=== PATIENT | male | born 1990 | race Caucasian/White ===

== ENCOUNTER 2017-03-04 10:27 | Emergency (ER) | payer OTHER ==
[2017-03-04] MEDS ORDERED: NS 0.9% 1000 ML* 1,000 ML IV ONE (10:34)
[2017-03-04] MEDS ORDERED: Ketorolac INJ* 30 MG/ML 1 ML VIAL IV PUSH ONE (10:42)
--- NOTE | 2017-03-04 10:43 | ED ---
Abdominal Pain/Male - HPI Summary HPI Summary: 26M presents with RUQ pain for a couple hours. He states it is a sharp pain. He states his pain radiates across his abdomen. He denies any n/v/d/c. He denies any dysuria, hematuria, flank pain, urgency or frequency. He denies any fever. He has never had this pain before. He denies any previous abdominal surgeries. He woke up with this pain. He has not taken anything for his pain. He had shah for dinner last night which was he last meal. - History of Current Complaint Chief Complaint: EDAbdPain Stated Complaint: ABD PAIN & CRAMPING Time Seen by Provider: 03/04/17 10:33 Pain Intensity: 10 - Allergies/Home Medications Allergies/Adverse Reactions: Allergies Allergy/AdvReac Type Severity Reaction Status Date / Time No Known Allergies Allergy Verified 03/04/17 10:32 PMH/Surg Hx/FS Hx/Imm Hx Endocrine/Hematology History: Denies: Hx Anticoagulant Therapy Cardiovascular History: Denies: Hx Hypertension Infectious Disease History: No Infectious Disease History: Denies: Traveled Outside the [place] in Last 30 Days - Family History Known Family History: Positive: Cardiac Disease - Social History Alcohol Use: Weekly Substance Use Type: Reports: None Smoking Status (MU): Never Smoked Tobacco Review of Systems Negative: Fever Negative: Chest Pain Negative: Shortness Of Breath Positive: Abdominal Pain - RUQ pain. Negative: Vomiting, Diarrhea, Nausea All Other Systems Reviewed And Are Negative: Yes Physical Exam Triage Information Reviewed: Yes Vital Signs On Initial Exam: Initial Vitals Temp Pulse Resp BP Pulse Ox 97.0 F 78 16 142/88 100 03/04/17 10:28 03/04/17 10:28 03/04/17 10:28 03/04/17 10:28 03/04/17 10:28 Vital Signs Reviewed: Yes Appearance: Positive: Well-Appearing Skin: Positive: Warm, Dry Head/Face: Positive: Normal Head/Face Inspection Eyes: Positive: Normal, Conjunctiva Clear Respiratory/Lung Sounds: Positive: Clear to Auscultation, Breath Sounds Present Cardiovascular: Positive: Normal, RRR Abdomen Description: Positive: Soft, Other: - tenderness greatest in RUQ and mild tenderness RLQ, neg [facility] and [facility] Bowel Sounds: Positive: Present Neurological: Positive: Sensory/Motor Intact Psychiatric: Positive: Normal Diagnostics - Vital Signs Vital Signs Temp Pulse Resp BP Pulse Ox 03/04/17 10:37 97.0 F 78 16 142/88 100 03/04/17 10:28 97.0 F 78 16 142/88 100 - Laboratory Result Diagrams: 03/04/17 10:55 03/04/17 10:55 Lab Statement: Any lab studies that have been ordered have been reviewed, and results considered in the medical decision making process. - CT abd CT Interpretation: No Acute Changes - IMPRESSION: NO ABNORMAL MASSES OR FLUID COLLECTIONS ARE IDENTIFIED. NO OBSTRUCTIVE UROPATHY IS NOTED. NORMAL APPENDIX. CT Interpretation Completed By: Radiologist - Ultrasound No standard instances Ultrasound Interpretation: No Acute Changes Ultrasound Interpretation Completed By: Radiologist - IMPRESSION: No evidence of cholelithiasis or biliary duct dilatation is noted. Re-Evaluation - Re-Evaluation First Eval Re-Evaluation Time: 13:35 Change: Improved Comment: feels good Abdominal Pain Fem Course/Dx - Course Course Of Treatment: 26M presents with RUQ pain for a couple hours. He states it is a sharp pain. He states his pain radiates across his abdomen. He denies any n/v/d/c. He denies any dysuria, hematuria, flank pain, urgency or frequency. He denies any fever. He has never had this pain before. He denies any previous abdominal surgeries. He woke up with this pain. on exam tender in RUQ and RLQ. gallbladder u/s and CT normal. labs normal. explained results. patient understands and agrees with plan. - Diagnoses Differential Diagnosis/HQI/PQRI: Appendicitis, Gall Bladder Disease, Urinary Tract Infection Provider Diagnoses: Abdominal pain Discharge - Discharge Plan Condition: Good Disposition: HOME Patient Education Materials: Abdominal Pain (ED) Referrals: Joi Nguyen MD [Primary Care Provider] - Additional Instructions: Drink small amounts of fluid as tolerated When able to eat follow BRAT diet: Bananas, rice, applesauce, toast Take ibuprofen or Tylenol for pain as needed every 6 hours Follow up with primary within 5 days Return to ED if develop any new or worsening symptoms
--- NOTE | 2017-03-04 11:28 | RAD ---
Indication: Right upper quadrant pain. Real-time sonography of the right upper quadrant was performed. The liver is normal in size. No focal lesions or intrahepatic duct dilatation is noted. The gallbladder demonstrates no calcified gallstones. No pericholecystic fluid or wall thickening is identified. The common duct measures 4 mm. Right kidney measures 12.2 x 4.9 x 6.0 cm with no hydronephrosis. The pancreatic head, neck and proximal body demonstrates no mass or pancreatic duct dilatation. The aorta and inferior vena cava are unremarkable. IMPRESSION: No evidence of cholelithiasis or biliary duct dilatation is noted.
[2017-03-04 11:34] LABS: Hematocrit 42 % (42-52); Hemoglobin 14.2 g/dl (14.0-18.0); Mean Corpuscular HGB Conc 34 g/dl (31-36); Mean Corpuscular Hemoglobin 29 pg (27-31); Mean Corpuscular Volume 86 fL (80-94); Mean Platelet Volume 9 um3 (7.4-10.4); Red Blood Count 4.93 10^6/ul (4.0-5.4); Red Cell Distribution Width 15 % (10.5-15); White Blood Count 6.3 10^3/ul (3.5-10.8)
[2017-03-04 11:45] LABS: BUN/Creatinine Ratio 10.5 (8-20); Calcium 9.6 mg/dL (8.6-10.3); EGFR African American 125.3 (>60); EGFR Non-African American 97.4 (>60); Globulin 2.5 g/dL (2-4); Potassium 3.2 mmol/L (3.5-5.0); Total Bilirubin 0.4 mg/dL (0.2-1.0); Total Protein 6.5 g/dL (6.4-8.9)
[2017-03-04] MEDS ORDERED: Iohexol 300* (CONTRAST) 10 ML SDV IV ONE (12:47)
--- NOTE | 2017-03-04 13:29 | RAD ---
Indication: Right-sided abdominal pain. Contrast: Administered 149.9 ml of OMNIPAQUE 300 mgi/ml CT of the abdomen and pelvis was performed after oral and IV contrast administration. Coronal and sagittal reconstructed images were obtained. Lung bases demonstrate no pleural fluid, nodules or masses. Heart is of normal size without evidence of pericardial effusion. Liver is normal in size. No focal lesions or intrahepatic ductal dilatation is noted common duct is not dilated. Gallbladder demonstrates no catheter gallstones, pericholecystic fluid or wall thickening. Spleen is normal in size. Pancreas demonstrates no mass or pancreatic duct dilatation. The common duct is not dilated. No adrenal masses are noted. The kidneys demonstrate symmetric nephrograms without hydronephrosis. Symmetric excretion is noted. No retroperitoneal lymphadenopathy. No dilated bowel are noted. The colon is filled with stool. Urinary bladder is unremarkable. Appendix is visualized and is unremarkable. No dilated loops of bowel are noted. CT of the pelvis demonstrates no retroperitoneal or pelvic lymphadenopathy. The colon is filled with stool. Urinary bladder is unremarkable. No dilated loops of bowel are noted. IMPRESSION: NO ABNORMAL MASSES OR FLUID COLLECTIONS ARE IDENTIFIED. NO OBSTRUCTIVE UROPATHY IS NOTED. NORMAL APPENDIX.
[2017-03-04 13:44] VITALS: BP 129/73
[2017-03-04 13:59] LABS: Urine Bacteria Absent (Absent); Urine Bilirubin Negative (Negative); Urine Glucose Negative (Negative); Urine Nitrite Negative (Negative)
== END 2017-03-04 13:40 | disposition home or self-care (01) ==
LOC: ED 10:27
DX: R10.11 Right upper quadrant pain (principal)
CPT/HCPCS: 36415; 74177; 76705; 80053; 81003; 81015; 83690; 85025; 86141; 96374; 99282; J1885; Q9967

== ENCOUNTER 2017-03-05 13:59 | Emergency (ER) | payer OTHER ==
[2017-03-05] MEDS ORDERED: Ondansetron INJ* 2 MG/ML VIAL IV ONE (15:15)
[2017-03-05] MEDS ORDERED: Morphine INJ* 4 MG/ML 1 ML CARPUJECT IV ONE (15:15)
[2017-03-05] MEDS ORDERED: NS 0.9% 1000 ML* 1,000 ML IV ONE (15:15)
[2017-03-05 15:31] LABS: Hematocrit 42 % (42-52); Hemoglobin 14.1 g/dl (14.0-18.0); Mean Corpuscular HGB Conc 34 g/dl (31-36); Mean Corpuscular Hemoglobin 29 pg (27-31); Mean Corpuscular Volume 86 fL (80-94); Mean Platelet Volume 9 um3 (7.4-10.4); Red Blood Count 4.86 10^6/ul (4.0-5.4); Red Cell Distribution Width 15 % (10.5-15); White Blood Count 8.8 10^3/ul (3.5-10.8)
[2017-03-05 15:46] LABS: Albumin 4.5 g/dL (3.2-5.2); BUN/Creatinine Ratio 10.5 (8-20); C Reactive Protein 6.62 mg/L (< 5.00); Calcium 9.5 mg/dL (8.6-10.3); EGFR African American 111.6 (>60); EGFR Non-African American 86.8 (>60); Globulin 2.4 g/dL (2-4); Potassium 3.3 mmol/L (3.5-5.0); Total Bilirubin 0.7 mg/dL (0.2-1.0); Total Protein 6.9 g/dL (6.4-8.9)
--- NOTE | 2017-03-05 16:58 | RAD ---
INDICATION: RIGHT flank pain with interval worsening. Hematuria. COMPARISON: Contrast enhanced CT of one day prior. TECHNIQUE: Multidetector CT images were obtained from the lung bases to the ischial tuberosities. Evaluation of the viscera is limited without IV contrast. Multiplanar reformation. REPORT: Mild airspace consolidation at the basilar segments of the RIGHT lower lobe without significant volume loss concerning for pneumonia. Negative for pleural effusion. Negative for CT abnormality of the unenhanced liver, gallbladder, pancreas, spleen. Splenule at the splenic hilum. Negative for CT abnormality of the upper GI, small bowel, or retrocecal appendix. Largely decompressed colon without suspicious finding. Negative for ascites, free air, hernias. Normal adrenal glands. Mild RIGHT hydronephrosis is traced to a solitary 1 mm stone at the far distal ureter approximate 1 cm from the ureterovesicular junction. No additional urolithiasis visualized. Negative for significant perinephric or periureteral inflammatory stranding. Unremarkable largely decompressed urinary bladder. Unremarkable prostate and seminal vesicles. Negative for lymphadenopathy. Normal diameter abdominal aorta and iliac arteries. Physiologic distention of the IVC. No suspicious osseous lesions evident. IMPRESSION: Mild RIGHT hydronephrosis is traced to a solitary 1 mm stone at the far distal ureter approximate 1 cm from the ureterovesicular junction. This represents a new finding compared with the CT of one day prior.
[2017-03-05 17:29] LABS: Budding Yeast Present (Absent); Urine Bacteria Absent (Absent); Urine Bilirubin Negative (Negative); Urine Glucose Negative (Negative); Urine Nitrite Negative (Negative)
[2017-03-05] MEDS ORDERED: Ketorolac INJ* 30 MG/ML 1 ML VIAL IV PUSH ONE (18:01)
[2017-03-05 18:45] VITALS: BP 139/81
--- NOTE | 2017-03-13 14:43 | ED ---
Bharati Snowden Thomas, scribed for Fer Farnsworth MD on 03/05/17 at 1517 . Abdominal Pain/Male - HPI Summary HPI Summary: The pt is a 26 y/o M presenting to the ED c/o RUQ abd pain. The pain began yesterday but worsened this AM. The pain radiates to his back and he rates the pain 10/10. He was [place] [facility] [place] JULIA Keller, and discharged home with a diagnosis of abd pain. He had a negative gallbladder US performed yesterday. He was given Toradol yesterday, which relieved his pain. 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 Pt denies dysuria, hematuria, and diarrhea. He denies a history of kidney stones. His PCP is Dr. Nguyen. He is on the ketogenic diet and started a month ago. He has lost ten pounds in the last month. PMHx: previously healthy. PSHx: none. SHx: marijuana, occasional drinking, no tobacco. 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 Negative: Diarrhea - Allergies/Home Medications Allergies/Adverse Reactions: Allergies Allergy/AdvReac Type Severity Reaction Status Date / Time No Known Allergies Allergy Verified 03/04/17 10:32 PMH/Surg Hx/FS Hx/Imm Hx Previously Healthy: No Endocrine/Hematology History: Denies: Hx Anticoagulant Therapy Cardiovascular History: Denies: Hx Hypertension Opthamlomology History: Denies: Hx Legally Blind Infectious Disease History: No Infectious Disease History: Denies: Traveled Outside the [place] in Last 30 Days - Family History Known Family History: Positive: Cardiac Disease - Social History Alcohol Use: Weekly Substance Use Type: Reports: None Smoking Status (MU): Never Smoked Tobacco Review of Systems Positive: Skin Diaphoresis. 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 Negative: dysuria, hematuria Musculoskeletal: Negative Negative: Edema - leg Skin: Negative Negative: Rash Neurological: Negative, Other - NEG: dizziness Psychological: Normal All Other Systems Reviewed And Are Negative: Yes Physical Exam - Summary Physical Exam Summary: Constitutional: Well-developed, Well-nourished, Alert. (-) Distressed Skin: Warm, Dry HENT: Normocephalic; Atraumatic Eyes: Conjunctiva normal Neck: Musculoskeletal ROM normal neck. (-) JVD, (-) Stridor, (-) Tracheal deviation Cardio: Rhythm regular, rate normal, Heart sounds normal; Intact distal pulses; The pedal pulses are 2+ and symmetric. Radial pulses are 2+ and symmetric. (-) Murmur Pulmonary/Chest wall: Effort normal. (-) Respiratory distress, (-) Wheezes, (-) Rales Abd: R CVA tenderness. RUQ and RLQ tenderness (RUQ>RLQ). Obese abdomen. Soft, (- ) Distension, (-) Guarding, (-) Rebound Musculoskeletal: (-) Edema Lymph: (-) Cervical adenopathy Neuro: Alert, Oriented x3 Psych: Mood and affect Normal Testicular: normal testicular exam. No tenderness. Triage Information Reviewed: Yes Vital Signs On Initial Exam: Initial Vitals Temp Pulse Resp BP Pulse Ox 99.9 F 77 20 144/82 100 03/05/17 14:01 03/05/17 14:01 03/05/17 14:01 03/05/17 14:01 03/05/17 14:01 Vital Signs Reviewed: Yes Diagnostics - Vital Signs Vital Signs Temp Pulse Resp BP Pulse Ox 03/05/17 15:02 97.7 F 80 20 153/83 98 03/05/17 14:01 99.9 F 77 20 144/82 100 - Laboratory Result Diagrams: 03/05/17 15:25 03/05/17 15:25 Lab Statement: Any lab studies that have been ordered have been reviewed, and results considered in the medical decision making process. - CT CT Abd/Pel CT Interpretation: Positive (See Comments) - CT Abd/Pel reveals Mild RIGHT hydronephrosis is traced to a solitary 1 mm stone at the far distal ureter approximate 1 cm from the ureterovesicular junction. This represents a new finding compared with the CT of one day prior. CT Interpretation Completed By: Radiologist Re-Evaluation - Re-Evaluation First Eval Re-Evaluation Time: 18:40 Change: Unchanged Abdominal Pain Fem Course/Dx - Course Assessment/Plan: The pt is a 26 y/o M presenting to the ED c/o RUQ abd pain. The pain began yesterday but worsened this AM. The pain radiates to his back and he rates the pain 10/10. He was seen at [facility] [place] by JULIA Keller, and discharged home with a diagnosis of abd pain. He had a negative gallbladder US performed yesterday. He was given Toradol yesterday, which relieved his pain. 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 Pt denies dysuria, hematuria, and diarrhea. He denies a history of kidney stones. His PCP is Dr. Nguyen. He is on the ketogenic diet and started a month ago. He has lost ten pounds in the last month. PMHx: previously healthy. PSHx: none. SHx: marijuana, occasional drinking , no tobacco. FHx: CAD. Bloodwork reveals Lymph % 10.6, absolute lymphs 0.9, Potassium 3.3, Glucose 110, CRP 6.62. UA shows ketones 2+, blood 3+, RBC 3+, yeast present. CT Abd/Pel reveals Mild RIGHT hydronephrosis is traced to a solitary 1 mm stone at the far distal ureter approximate 1 cm from the ureterovesicular junction. This represents a new finding compared with the CT of one day prior. In the ED course the patient was given morphine, toradol, IV fluids, and Zofran. He was diagnosed with ureteral stone and discharged home with follow-up to Dr. Davidson. - Diagnoses Provider Diagnoses: Ureteral stone Discharge - Discharge Plan Condition: Stable Disposition: HOME Prescriptions: Ketorolac TAB * [Toradol TAB *] 10 mg PO Q6H #12 tab oxyCODONE/Acetamin 5/325 MG* [Percocet 5/325 TAB*] 1 tab PO Q6H PRN #12 tab MDD 4 PRN Reason: Pain - Severe Patient Education Materials: Ureteral Stones (ED) Referrals: Johnny Davidson MD [Medical Doctor] - 3 Days Additional Instructions: RETURN TO THE EMERGENCY DEPARTMENT FOR CHANGING OR WORSENING SYMPTOMS The documentation as recorded by the Bharati houston Thomas accurately reflects the service I personally performed and the decisions made by Daaj conner Jerry, MD.
== END 2017-03-05 18:46 | disposition home or self-care (01) ==
LOC: ED 13:59
DX: N20.1 Calculus of ureter (principal); R10.11 Right upper quadrant pain; R61 Generalized hyperhidrosis; R11.2 Nausea with vomiting, unspecified
CPT/HCPCS: 36415; 74176; 80053; 81003; 81015; 83605; 83690; 85025; 86140; 96374; 96375; 99283; J1885; J2270; J2405

== ENCOUNTER 2017-11-05 08:27 | Emergency (ER) | payer OTHER ==
[2017-11-05] MEDS ORDERED: Ketorolac INJ* 60 MG/2 ML VIAL IM ONE (09:35)
[2017-11-05] MEDS ORDERED: Lidocaine 2% VISCOUS* 15 ML UDC SWISH SPIT ONE (09:35)
[2017-11-05 10:08] VITALS: BP 122/70
--- NOTE | 2017-11-05 10:21 | ED ---
Throat Pain/Nasal Congestion - HPI Summary HPI Summary: Pt here with left posterior molar pain along the gingiva since middle of the night last night. He reports he had a GI bug last week with vomiting and believes he irritated an already decayed and sensitive area along this tooth. He has been trying Scope mouthwash which provides temporary relief when he allows it to rest against the area with his mouth closed. He also reports pain is less when he breathes into a blanket. Pain is worse with temperature changes. Denies discharge from the area, fever, chills, headache, otalgia however at its peak of pain last night he did have radiating pain into his left ear. He tried a Fioricet and a by mouth Toradol he had at home without relief. Reports pain has actually calmed down since he's been here to a 4 out of 10 where was excruciating last night. He has an appointment to see his dentist on Wednesday. No difficulty breathing or swallowing. - History of Current Complaint Chief Complaint: EDDentalPain Time Seen by Provider: 11/05/17 09:09 Hx Obtained From: Patient - Allergies/Home Medications Allergies/Adverse Reactions: Allergies Allergy/AdvReac Type Severity Reaction Status Date / Time No Known Allergies Allergy Verified 03/04/17 10:32 PMH/Surg Hx/FS Hx/Imm Hx Previously Healthy: Yes Endocrine/Hematology History: Denies: Hx Anticoagulant Therapy Cardiovascular History: Denies: Hx Hypertension Sensory History: Denies: Hx Legally Blind Opthamlomology History: Denies: Hx Legally Blind Infectious Disease History: No Infectious Disease History: Denies: Traveled Outside the [place] in Last 30 Days - Family History Known Family History: Positive: Cardiac Disease - Social History 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 Negative: Sore Throat, Ear Ache, Nasal Discharge Cardiovascular: Negative Respiratory: Negative Gastrointestinal: Negative Positive: no symptoms reported Musculoskeletal: Negative Skin: Negative Neurological: Negative Psychological: Normal All Other Systems Reviewed And Are Negative: Yes Physical Exam Triage Information Reviewed: Yes Vital Signs On Initial Exam: Initial Vitals Temp Pulse Resp BP Pulse Ox 98.1 F 65 16 140/84 98 11/05/17 08:33 11/05/17 08:33 11/05/17 08:33 11/05/17 08:33 11/05/17 08:33 Vital Signs Reviewed: Yes Appearance: Positive: Well-Appearing, No Pain Distress, Obese Skin: Positive: Warm, Skin Color Reflects Adequate Perfusion, Dry - No erythema , no edema, no lesions over affected area face Head/Face: Positive: Normal Head/Face Inspection Eyes: Positive: Normal, EOMI, Conjunctiva Clear. Negative: Conjunctiva Inflammed, Discharge ENT: Positive: Hearing grossly normal, Pharynx normal, TMs normal - Left, Uvula midline. Negative: Nasal congestion, Nasal drainage, TM bulging, TM dull, TM red, Tonsillar swelling, Tonsillar exudate, Trismus, Muffled voice, Hoarse voice Dental: Positive: Gross Decay/Caries @ - #15 or 16 w/ decay at gingival border - tissue is erythematous and TTP - no drainage or bleeding - no som edema or pustule Neck: Positive: Supple, Nontender, No Lymphadenopathy Respiratory/Lung Sounds: Positive: Clear to Auscultation, Breath Sounds Present Cardiovascular: Positive: Normal Musculoskeletal: Positive: Normal, Strength/ROM Intact Neurological: Positive: Normal, Sensory/Motor Intact, Alert, Oriented to Person Place, Time, CN Intact II-III Psychiatric: Positive: Normal Diagnostics - Vital Signs Vital Signs Temp Pulse Resp BP Pulse Ox 11/05/17 10:02 99.1 F 74 16 122/70 97 11/05/17 10:00 65 93/76 97 11/05/17 09:30 76 132/58 99 11/05/17 09:00 79 142/80 99 11/05/17 08:51 82 96 11/05/17 08:49 138/83 11/05/17 08:33 98.1 F 65 16 140/84 98 - Laboratory Lab Statement: Any lab studies that have been ordered have been reviewed, and results considered in the medical decision making process. EENT Course/Dx - Diagnoses Provider Diagnoses: Dental decay Discharge - Sign-Out/Discharge Documenting (check all that apply): Discharge - Discharge Plan Condition: Stable Disposition: HOME Prescriptions: Clindamycin HCl 300 mg PO Q8HR #30 capsule Ibuprofen TAB* [Motrin TAB* 800 MG] 800 mg PO Q8HR PRN #20 tab PRN Reason: Pain Lidocaine 2% VISCOUS* [Xylocaine 2% Viscous*] 15 ml SWISH SPIT Q4H PRN #1 btl PRN Reason: Pain Patient Education Materials: Toothache (ED) Forms: *Work Release Referrals: Joi Nguyen MD [Primary Care Provider] - Additional Instructions: Complete antibiotics and use pain medications as needed. Avoid caustic foods or beverages such as spicy foods, carbonated beverages, sugary or acidic foods or beverages and anything alcohol-based (i.e. mouthwash). Stay hydrated by drinking room temperature/warm liquids and nourished by drinking soup broth and a temperature that is tolerable. Follow-up with dentist Wednesday as planned *If you develop a severe headache, fever, difficulty breathing or swallowing, return to the emergency department - Billing Disposition and Condition Condition: STABLE Disposition: HOME
== END 2017-11-05 10:02 | disposition home or self-care (01) ==
LOC: ED 08:27
DX: K02.9 Dental caries, unspecified (principal)
CPT/HCPCS: 96372; 99283; J1885

== ENCOUNTER 2018-07-07 08:20 | Emergency (ER) | payer OTHER ==
--- NOTE | 2018-07-07 09:03 | ED ---
Syncope/Near Syncope - HPI Summary HPI Summary: This patient is a 27 year old M presenting to [facility] accompanied by his father with a chief complaint of a syncopal episode that occurred this morning. Pt states he has had a general illness for the last week and this morning he was getting up to vomit when one of his roommates heard him fall. They entered to him getting off the floor and they contacted his father. Pt states that for the last week he has been experiencing n/v, cramping ABD pain, RIVAS, cough, and decreased appetite. He has also had diarrhea but this may be due to his IBS. He states he feels dehydrated and has had a migraine for the last couple days, he gets migraines intermittently. The patient rates the pain 5/10 in severity. He reports having syncopal episodes in the pat but it has been due to anxiety. Patient denies blood in BM. He believes the vomiting is due to the coughing fits he has. Pt still has his appendix. NKDA. - History Of Current Complaint Chief Complaint: EDGeneral Time Seen by Provider: 07/07/18 08:54 Hx Obtained From: Patient Onset/Duration: Resolved Timing: Seconds Context: Unwitnessed Activity At Onset: Other Associated Signs And Symptoms: Vomiting, Other - nausea - Allergies/Home Medications Allergies/Adverse Reactions: Allergies Allergy/AdvReac Type Severity Reaction Status Date / Time No Known Allergies Allergy Verified 11/09/17 09:37 Home Medications: Home Medications NK [No Home Medications Reported] 07/07/18 [History Confirmed 07/07/18] PMH/Surg Hx/FS Hx/Imm Hx Endocrine/Hematology History: Denies: Hx Anticoagulant Therapy Cardiovascular History: Denies: Hx Hypertension GI History: Reports: Hx Irritable Bowel Sensory History: Reports: Hx Contacts or Glasses Denies: Hx Legally Blind Opthamlomology History: Reports: Hx Contacts or Glasses Denies: Hx Legally Blind Neurological History: Reports: Other Neuro Impairments/Disorders - syncope Psychiatric History: Reports: Hx Anxiety Infectious Disease History: No Infectious Disease History: Denies: Traveled Outside the [place] in Last 30 Days - Family History Known Family History: Positive: Cardiac Disease Family History: breast cancer - Social History Lives: Dormitory/Roommates Alcohol Use: Rare Alcohol Amount: "1/2 pink of Vodka" Substance Use Type: Reports: Marijuana Substance Use Comment - Amount & Last Used: 2 times a week Hx Tobacco Use: No Smoking Status (MU): Never Smoked Tobacco Review of Systems Positive: Cough Gastrointestinal: Other - decreased appetite and dehydration Positive: Abdominal Pain, Vomiting, Diarrhea, Nausea Positive: Headache, Syncope All Other Systems Reviewed And Are Negative: Yes Physical Exam - Summary Physical Exam Summary: GENERAL: Patient is a well-developed and nourished M who is lying comfortable in the stretcher. Patient is not in any acute respiratory distress. HEAD AND FACE: Normocephalic EYES: PERRLA, EOMI x 2. EARS: Hearing grossly intact. MOUTH: Oropharynx within normal limits. NECK: Supple, trachea is midline, no adenopathy, no JVD, no carotid bruit. CHEST: Symmetric, no tenderness at palpation LUNGS: Clear to auscultation bilaterally. No wheezing or crackles. CVS: Regular rate and rhythm, S1 and S2 present, no murmurs or gallops appreciated. ABDOMEN: Soft, TTP in periumbilical region, TTP in RUQ and RLQ that is worse in the RLQ. Bowel sounds are normal. No abdominal abnormal pulsations. EXTREMITIES: Full ROM in all major joints, no edema, no cyanosis or clubbing. NEURO: Alert and oriented x 3. No acute neurological deficits. Speech is normal and follows commands. SKIN: Dry and warm Triage Information Reviewed: Yes Vital Signs On Initial Exam: Initial Vitals Temp Pulse Resp BP Pulse Ox 100.2 F 73 19 136/93 95 07/07/18 08:23 07/07/18 08:23 07/07/18 08:23 07/07/18 08:23 07/07/18 08:23 Vital Signs Reviewed: Yes Diagnostics - Vital Signs Vital Signs Temp Pulse Resp BP Pulse Ox 07/07/18 08:36 85 151/89 98 07/07/18 08:23 100.2 F 73 19 136/93 95 - Laboratory Result Diagrams: 07/07/18 09:47 07/07/18 09:47 Lab Statement: Any lab studies that have been ordered have been reviewed, and results considered in the medical decision making process. - Radiology CXR Radiology Interpretation Completed By: Radiologist Summary of Radiographic Findings: no evidence for acute cardiopulmonary disease. ED physician has reviewed this radiology report. - CT CT ABD/Pelvis CT Interpretation Completed By: Radiologist Summary of CT Findings: NORMAL APPENDIX. NO ACUTE CT PATHOLOGY OF THE VISUALIZED ABDOMEN OR PELVIS. ED physician has reviewed this radiology report. - EKG 0915 Cardiac Rate: NL EKG Rhythm: Sinus Rhythm - at 67 BPM Summary of EKG Findings: interventricular conduction delay. DEBORAH. Course/Dx Assessment/Plan: This patient is a 27 year old M presenting to [facility] accompanied by his father with a chief complaint of a syncopal episode that occurred this morning. Pt states he has had a general illness for the last week and this morning he was getting up to vomit when one of his roommates heard him fall. An EKG reveals 0915, NSR 67 BPM interventricular conduction delay. DEBORAH. CXR reveals, per radiologist, no evidence for acute cardiopulmonary disease. CT ABD/Pelvis, per radiology, NORMAL APPENDIX. NO ACUTE CT PATHOLOGY OF THE VISUALIZED ABDOMEN OR PELVIS. The patient was given toradol, Zofran, and IV fluids. Pt improved with these medications. Dx viral syndrome. His sx are most likely secondary to this. Test results with no significant abnormalities. UA obtained there was no UTI evidence. Pt was negative for mono, influenza A and B , as well as strep. Patient will be discharged with strict return precautions and he will f/u with PCP in 1-3 days. The patient is agreeable with this plan. - Diagnoses Provider Diagnoses: Viral syndrome Discharge - Sign-Out/Discharge Documenting (check all that apply): Patient Departure - Discharge Plan Condition: Stable Disposition: HOME Patient Education Materials: Viral Syndrome (ED) Referrals: Joi Nguyen MD [Primary Care Provider] - Additional Instructions: Follow up with your primary care physician in 1-3 days. RETURN TO THE EMERGENCY DEPARTMENT FOR CHANGING OR WORSENING SYMPTOMS. - Billing Disposition and Condition Condition: STABLE Disposition: Home - Attestation Statements Document Initiated by Jhon: Yes Documenting Scribe: Solomon Calderon Provider For Whom Jhon is Documenting (Include Credential): Baudilio Houston Attestation: Solomon Snowden scribed for Baudilio Travis on 07/07/18 at 1533. Scribe Documentation Reviewed: Yes Provider Attestation: The documentation as recorded by the Solomon houston accurately reflects the service I personally performed and the decisions made by Baudilio conner Status of Scribe Document: Viewed
[2018-07-07] MEDS ORDERED: NS 0.9% 1000 ML* 1,000 ML IV ONE (09:07)
[2018-07-07] MEDS ORDERED: Ketorolac INJ* 30 MG/ML 1 ML VIAL IV PUSH ONE (09:08)
[2018-07-07] MEDS ORDERED: Ondansetron INJ* 2 MG/ML VIAL IV ONE (09:08)
[2018-07-07 09:57] LABS: ABS Basophils 0.1 10^3/ul (0-0.2); ABS Eosinophils 0.1 10^3/ul (0-0.6); ABS Lymphocytes 1.4 10^3/ul (1.0-4.8); ABS Monocytes 0.5 10^3/ul (0-0.8); ABS Neutrophils 6.4 10^3/ul (1.5-7.7); ABS Nucleated RBC 0 10^3/ul; Eosinophil % 0.8 %; Hematocrit 47 % (42-52); Hemoglobin 16.1 g/dl (14.0-18.0); Lymphocyte % 16.3 %; Mean Corpuscular HGB Conc 35 g/dl (31-36); Mean Corpuscular Hemoglobin 30 pg (27-31); Mean Corpuscular Volume 86 fL (80-94); Mean Platelet Volume 8.5 fL (7.4-10.4); Nucleated Red Blood Cells % 0; Platelet Count 341 10^3/ul (150-450); Red Blood Count 5.43 10^6/ul (4.00-5.40); Red Cell Distribution Width 13 % (10.5-15); White Blood Count 8.4 10^3/ul (3.5-10.8)
[2018-07-07] MEDS ORDERED: Iohexol 300* (CONTRAST) 10 ML SDV IV ONE (10:21)
[2018-07-07 11:58] LABS: Urine Appearance Clear; Urine Blood Negative (Negative); Urine Color Yellow; Urine Ketones 1+ (Negative); Urine Protein Negative (Negative); Urine Specific Gravity > 1.060 (1.010-1.030); Urine Urobilinogen Positive (Negative)
[2018-07-07 12:41] VITALS: BP 129/90
== END 2018-07-07 12:42 | disposition home or self-care (01) ==
LOC: ED 08:20
DX: B34.9 Viral infection, unspecified (principal); F41.9 Anxiety disorder, unspecified; I45.89 Other specified conduction disorders
CPT/HCPCS: 36415; 71045; 74177; 80053; 81003; 83605; 83690; 83735; 84484; 85025; 86140; 86308; 87040; 87651; 93005; 96361; 96374; 96375; 99283; J1885; J2405; Q9967

== ENCOUNTER 2019-06-18 16:07 | Emergency (ER) | payer SELFPAY ==
[2019-06-18 16:33] VITALS: BP 129/78
--- NOTE | 2019-06-18 17:16 | UC ---
Respiratory Complaint HPI - HPI Summary HPI Summary: Patient is 28 year old male , who present today to the urgent care with cough for past 2-1/2 weeks. Productive of yellowish sputum. Unsure of any sick contacts but started as a sore throat which has now resolved and feels more in his lungs. Reports subjective fevers for which he states Tylenol or ibuprofen. Denies chest pain or shortness of breath . Denies any abdominal pain , nausea or vomiting , diarrhea or constipation. - History of Current Complaint Chief Complaint: UCRespiratory Stated Complaint: COUGH Time Seen by Provider: 06/18/19 16:52 Hx Obtained From: Patient Pain Intensity: 7 - Allergies/Home Medications Allergies/Adverse Reactions: Allergies Allergy/AdvReac Type Severity Reaction Status Date / Time No Known Allergies Allergy Verified 06/18/19 16:34 Home Medications: Home Medications Acetaminophen TAB* [Tylenol TAB*] 975 mg PO Q6H PRN 06/18/19 [History Confirmed 06/18/19] Ibuprofen TAB* [Motrin TAB* 600 MG] 600 mg PO Q6H PRN 06/18/19 [History Confirmed 06/18/19] PMH/Surg Hx/FS Hx/Imm Hx - Additional Past Medical History Additional PMH: Past Medical History : Anxiety, ADHD, migraine Past Surgical History: No Past History of Procedure Family History : non contributory Social History : Rare alcohol, Former smoker, marijuana use- for anxiety and headaches. Currently not working Previously Healthy: Yes Other History Of: Negative For: Anticoagulant Therapy - Surgical History Surgical History: None - Family History Known Family History: Positive: Cardiac Disease, Non-Contributory Family History: breast cancer - Social History Alcohol Use: Rare Alcohol Amount: "1/2 pink of Vodka" Substance Use Type: Marijuana Substance Use Comment - Amount & Last Used: daily for anxiety Smoking Status (MU): Former Smoker Type: eCigarettsamantha Review of Systems All Other Systems Reviewed And Are Negative: Yes Constitutional: Positive: Fever Skin: Positive: Negative Eyes: Positive: Negative ENT: Positive: Sore Throat Respiratory: Positive: Cough - Productive of yellowish sputum Cardiovascular: Positive: Negative Gastrointestinal: Positive: Negative Genitourinary: Positive: Negative Motor: Positive: Negative Neurovascular: Positive: Negative Musculoskeletal: Positive: Negative Neurological: Positive: Negative Psychological: Positive: Negative Is Patient Immunocompromised?: No Physical Exam - Summary Physical Exam Summary: Physical Exam: Const: Appears well. No signs of apparent distress present. Alert and oriented x 3. Musculo: Walks with a normal gait. Head/Face: Atraumatic, normocephalic on inspection. Eyes: EOMI and PERRLA in both eyes. Conjunctivae clear. No discharge noted ENT: Hearing normal, TM normal appearing bilaterally, non bulging , non erythematous . No tenderness on palpation / manipulation of Tragus. No mastoid tenderness. No tenderness to palpation on maxillary and frontal sinus. Minimal pharyngeal erythema if any without exudates . Uvula is midline. No cervical or submandibular lymphadenopathy noted. Respiratory: Respirations are unlabored. Decreased air entry with rhonchi/ crackles in the right lower lobe. Air entry good on the left side. CVS: Regular rate and Rhythm, S1S2 normal , no murmurs identified. Extremities: Peripheral circulation is grossly normal. Pulses 2+ Abdomen : Soft non tender , nondistended , Bowel sounds present . No guarding , rebound tenderness or rigidity noted. Skin: No lesions or rash located on the upper extremities or on the lower extremities. Neuro: Cranial nerves II to XII intact, motor and sensory intact. DTR Intact bilaterally. Mood is normal. Affect is normal. Triage Information Reviewed: Yes Vital Signs: Initial Vital Signs Temp 99.4 F 06/18/19 16:27 Pulse 83 06/18/19 16:27 Resp 16 06/18/19 16:27 BP 129/78 06/18/19 16:27 Pulse Ox 98 06/18/19 16:27 Vital Signs Reviewed: Yes Diagnostics - Radiology No standard instances Radiology Interpretation Completed By: Radiologist - Chest x-ray:IMPRESSION: NO ACTIVE CARDIOPULMONARY DISEASE. Respiratory Course/Dx - Course Course Of Treatment: During the visit today, we obtained chest x-ray: IMPRESSION: NO ACTIVE CARDIOPULMONARY DISEASE. Suspect atypical pneumonia. Symptoms> 2 weeks, Will treat with antibiotics. First dose given here today. I will prescribe the medication to the pharmacy . Patient expressed understanding . - Differential Dx/Diagnosis Provider Diagnosis: Atypical pneumonia Discharge ED - Sign-Out/Discharge Documenting (check all that apply): Patient Departure All imaging exams completed and their final reports reviewed: Yes - Discharge Plan Condition: Stable Disposition: HOME Prescriptions: Azithromycin TAB* [Zithromax TAB (Z-BRANDYN) 250 mg #6 tabs] 250 mg PO DAILY 4 Days #4 tab Benzonatate CAP* [Tessalon 100 MG CAP*] 100 mg PO TID PRN 10 Days #30 cap PRN Reason: Cough Patient Education Materials: Pneumonia (ED) Referrals: Joi Nguyen MD [Primary Care Provider] - 1 Week Additional Instructions: Please start taking the medication as prescribed to the pharmacy . Follow up with your primary care doctor in 1 week Patients blood pressure slightly high in Urgent care today and prehypertensive range , plan follow up with PCP for better control Return to Urgent care / ER if symptoms get worse. - Billing Disposition and Condition Condition: STABLE Disposition: Home
[2019-06-18] MEDS ORDERED: Azithromycin TAB* 250 MG PO ONE (17:45)
[2019-06-18] MEDS ORDERED: Benzonatate CAP* 100 MG PO ONE (17:46)
== END 2019-06-18 18:04 | disposition home or self-care (01) ==
LOC: UCEAST 16:07
DX: J18.9 Pneumonia, unspecified organism (principal); F90.9 Attention-deficit hyperactivity disorder, unspecified type; Z87.891 Personal history of nicotine dependence
CPT/HCPCS: 71046; 99212; A9270-GY; G0463